=== PATIENT | female | born 1935 | race Caucasian/White ===

== ENCOUNTER → 2023-07-12 | Outpatient (CLI) | payer MEDICARE ==
[~2023-07-12] MED LIST: AMLODIPINE BESYL5 MG PO; ATORVASTATIN CA20 MG PO; ESTMED1.5T PO; HYDCHL25 PO; ISOSORBIDE MONO30 MG PO; KLOR-CON M1010 MEQ PO; LATANOPROST2.5 M3 OP; LEVO.5OPSO OD; LOSA25 PO; OMEP20ER PO; ROSU5 PO; SULTRIDS PO; VALS80 PO
== END ==
LOC: LAB 10:15 → LAB SHORT 10:15
DX: N39.0 Urinary tract infection, site not specified (principal)
CPT/HCPCS: 87086

== ENCOUNTER → 2023-07-20 | Outpatient (CLI) | payer MEDICARE ==
[2023-07-20 16:07] LABS: Candida species (DNA Probe) Negative (NEGATIVE); G. vaginalis (DNA Probe) Negative (NEGATIVE); T. vaginalis (DNA Probe) Negative (NEGATIVE)
== END | disposition home or self-care (01) ==
LOC: LAB SHORT 12:40 → LAB 12:40
PROVIDERS: Nurse Practitioner Family
DX: N89.8 Other specified noninflammatory disorders of vagina (principal)
CPT/HCPCS: 87070; 87205; 87480; 87510; 87660

== ENCOUNTER 2023-08-20 21:34 | Observation (INO) | payer MEDICARE ==
[~2023-08-20] VITALS: Ht 160 cm; Wt 62.6 kg
[~2023-08-20 21:34] MED LIST changes: +LATANOPROST2.5 M3 BOTHEYES; -LATANOPROST2.5 M3 OP
[2023-08-20 22:33] LABS: BASOPHILS ABSOLUTE AUTO 0.08 K/mm3 (0.00-0.23); BASOPHILS PERCENT AUTO 1 % (0-2); EOSINOPHILS ABSOLUTE AUTO 0.27 K/mm3 (0.00-0.68); EOSINOPHILS PERCENT AUTO 3 % (0-6); Hematocrit 37.1 % (33.0-51.0); Hemoglobin 12.8 g/dL (11.5-16.0); IMMATURE GRAN ABSOLUTE AUTO 0.04 K/mm3 (0.00-0.10); IMMATURE GRAN PERCENT AUTO 0 % (0-1); LYMPHOCYTES ABSOLUTE AUTO 2.97 K/mm3 (0.84-5.20); LYMPHOCYTES PERCENT AUTO 33 % (21-46); MONOCYTES ABSOLUTE AUTO 0.89 K/mm3 (0.16-1.47); MONOCYTES PERCENT AUTO 10 % (4-13); Mean Corpuscular HGB 32.7 pg (26.0-34.0); Mean Corpuscular HGB Conc 34.5 g/dL (31.5-36.5); Mean Corpuscular Volume 95 fL (80-100); NEUTROPHILS PERCENT AUTO 54 % (41-73); Platelet Count 261 K/mm3 (150-400); RDW Coefficient Variation 13.5 % (11.7-14.2); RDW Standard Deviation 46.7 fL (35.1-46.3); Red Blood Cell Count 3.92 M/mm3 (3.80-5.20); White Blood Cell Count 9.15 K/mm3 (4.00-11.30)
[2023-08-20 22:52] LABS: Albumin, Blood 3.7 g/dL (3.4-5.0); Albumin/Globulin Ratio 1.2 (0.8-1.8); Bilirubin, Total 0.4 mg/dL (0.1-1.0); Bun/Creatinine Ratio 23.8 (12.0-20.0); Calcium, Blood 9.1 mg/dL (8.5-10.1); Creatinine, Blood 0.71 mg/dL (0.40-1.00); Globulin, Blood 3.2 g/dL (2.2-4.0); Potassium, Blood 3.5 mmol/L (3.5-5.5); Total Protein, Blood 6.9 g/dL (6.4-8.2)
[2023-08-21 04:13] VITALS: BP 140/69
[2023-08-21 05:27] LABS: BASOPHILS ABSOLUTE AUTO 0.07 K/mm3 (0.00-0.23); BASOPHILS PERCENT AUTO 1 % (0-2); EOSINOPHILS PERCENT AUTO 3 % (0-6); Hematocrit 37.1 % (33.0-51.0); Hemoglobin 12.5 g/dL (11.5-16.0); IMMATURE GRAN ABSOLUTE AUTO 0.06 K/mm3 (0.00-0.10); IMMATURE GRAN PERCENT AUTO 1 % (0-1); LYMPHOCYTES ABSOLUTE AUTO 3.05 K/mm3 (0.84-5.20); LYMPHOCYTES PERCENT AUTO 33 % (21-46); MONOCYTES ABSOLUTE AUTO 0.77 K/mm3 (0.16-1.47); MONOCYTES PERCENT AUTO 8 % (4-13); Mean Corpuscular HGB 32.1 pg (26.0-34.0); Mean Corpuscular HGB Conc 33.7 g/dL (31.5-36.5); Mean Corpuscular Volume 95 fL (80-100); Mean Platelet Volume 9.4 fL (9.1-12.4); NEUTROPHILS ABSOLUTE AUTO 5.06 K/mm3 (1.96-9.15); NEUTROPHILS PERCENT AUTO 54 % (41-73); Platelet Count 240 K/mm3 (150-400); RDW Coefficient Variation 13.3 % (11.7-14.2); Red Blood Cell Count 3.89 M/mm3 (3.80-5.20); White Blood Cell Count 9.31 K/mm3 (4.00-11.30)
[2023-08-21 06:01] LABS: Albumin, Blood 3.4 g/dL (3.4-5.0); Albumin/Globulin Ratio 1.1 (0.8-1.8); Bilirubin, Total 0.5 mg/dL (0.1-1.0); Bun/Creatinine Ratio 21.4 (12.0-20.0); Calcium, Blood 8.9 mg/dL (8.5-10.1); Creatinine, Blood 0.66 mg/dL (0.40-1.00); Globulin, Blood 3.1 g/dL (2.2-4.0); Potassium, Blood 3.3 mmol/L (3.5-5.5); Total Protein, Blood 6.5 g/dL (6.4-8.2)
[2023-08-21 07:24] VITALS: BP 132/64
[2023-08-21] MEDS ORDERED: CLOP75 PO (13:38)
[2023-08-21] MEDS ORDERED: ASPI81CH PO (13:38)
--- NOTE | 2023-08-21 14:50 | NUR ---
DISCHARGE PT DISCHARGED TODAY AFTER BEING EDUCATED ON NEW MEDICATIONS, MEDICATION CHANGES, AND FOLLOW UP INSTRUCTIONS. PT ENCOURAGED TO STAY ANOTHER NIGHT FOR FURTHER CARDIAC , BUT STATED SHE WOULD PREFER TO LEAVE AND HAVE A ZIO PATCH PLACED WEDNESDAY. PT EDUCATED ON THE IMPORTANCE OF GETTING THIS PATCH PLACED AND TO CALL HER [employer] OFFICE IN ORDER TO DO THIS. PT STATES SHE UNDERSTANDS. PTS GRANDDAUGHTER, LEXII, ALSO EDUCATED ON THIS. PT EDUCATED ON THE NEED TO USE HER WALKER AT HOME TO PREVENT A FALL. PT AND GRANDDAUGHER STATE THEY UNDERSTAND. PT WHEELED OUT BY AIDE & DRIVE HOME BY GRANDDAUGHTER.
[2023-08-25 07:09] LABS: HEMOGLOBIN A1C 5.9 % (4.8-5.6)
== END 2023-08-21 14:48 | disposition home or self-care (01) ==
LOC: ER 21:34 → ERHOLD 21:35 → MEDS 21:35 → ENPENDDIS 08-21 13:36 → MEDS 08-21 14:48
PROVIDERS: Emergency Medicine; Internal Medicine; ADMIT Student in an Organized Health Care Education/Training Program
DX: I63.9 Cerebral infarction, unspecified (principal); I10 Essential (primary) hypertension; I35.0 Nonrheumatic aortic (valve) stenosis; Z88.5 Allergy status to narcotic agent; Z23 Encounter for immunization
CPT/HCPCS: 36415; 70450; 70496; 70498; 70551; 80053; 83036; 83735; 85025; 93005; 93010; 93306; 96372; 97110; 97116; 97162; 99285-25; A9270; G0008; G0378; J1650; Q2036; Q9967

== ENCOUNTER 2023-11-09 10:53 | Emergency (ER) | payer MEDICARE ==
[~2023-11-09] VITALS: Ht 160 cm; Wt 61.2 kg
[~2023-11-09 10:53] MED LIST changes: +ASPI81CH PO; +CLOP75 PO
[2023-11-09] MEDS ORDERED: ATOR40TA PO (11:10)
[2023-11-09] MEDS ORDERED: LOSA50 PO (11:11)
[2023-11-09 12:50] LABS: BASOPHILS ABSOLUTE AUTO 0.06 K/mm3 (0.00-0.23); BASOPHILS PERCENT AUTO 1 % (0-2); EOSINOPHILS ABSOLUTE AUTO 0.23 K/mm3 (0.00-0.68); EOSINOPHILS PERCENT AUTO 3 % (0-6); Hemoglobin 13.6 g/dL (11.5-16.0); IMMATURE GRAN ABSOLUTE AUTO 0.03 K/mm3 (0.00-0.10); IMMATURE GRAN PERCENT AUTO 0 % (0-1); LYMPHOCYTES ABSOLUTE AUTO 2.67 K/mm3 (0.84-5.20); LYMPHOCYTES PERCENT AUTO 30 % (21-46); MONOCYTES PERCENT AUTO 7 % (4-13); Mean Corpuscular HGB 32.3 pg (26.0-34.0); Mean Corpuscular Volume 95 fL (80-100); Mean Platelet Volume 9.1 fL (9.1-12.4); NEUTROPHILS ABSOLUTE AUTO 5.38 K/mm3 (1.96-9.15); NEUTROPHILS PERCENT AUTO 60 % (41-73); Platelet Count 234 K/mm3 (150-400); RDW Coefficient Variation 12.8 % (11.7-14.2); RDW Standard Deviation 43.9 fL (35.1-46.3); Red Blood Cell Count 4.21 M/mm3 (3.80-5.20); White Blood Cell Count 8.97 K/mm3 (4.00-11.30)
[2023-11-09 13:18] LABS: Albumin, Blood 3.5 g/dL (3.4-5.0); Albumin/Globulin Ratio 1.1 (0.8-1.8); Bilirubin, Total 0.3 mg/dL (0.1-1.0); Bun/Creatinine Ratio 22.3 (12.0-20.0); Calcium, Blood 9.3 mg/dL (8.5-10.1); Creatinine, Blood 0.63 mg/dL (0.40-1.00); Globulin, Blood 3.3 g/dL (2.2-4.0); Magnesium, Blood 2.3 mg/dL (1.6-2.4); Potassium, Blood 3.4 mmol/L (3.5-5.5); Total Protein, Blood 6.8 g/dL (6.4-8.2)
[2023-11-09 13:54] LABS: Source, Urine Straight Cath
[2023-11-09 14:00] LABS: Appearance, Urine Hazy (Clear); Bilirubin, Urine Neg (Neg); Blood, Urine Neg (Neg); Color, Urine Yellow (P-Yellow); Glucose Qualitative, Urine Neg (Neg); Ketones, Urine Neg (Neg); Leukocyte Esterase, Urine Neg (Neg); Nitrite, Urine Neg (Neg); Protein, Urine Neg (Neg); Specific Gravity, Urine 1.015 (1.003-1.022); Urobilinogen, Urine NORM (Normal)
[2023-11-09 14:06] LABS: Bacteria Not Seen /hpf; Red Blood Cells, Urine Not Seen /hpf (0-2); Squamous Epithelial Cells Rare /hpf (Few); White Blood Cells, Urine 0-2 /hpf (0-5)
[2023-11-09 15:15] VITALS: BP 102/52
== END 2023-11-09 15:42 | disposition home or self-care (01) ==
LOC: ER 10:53
PROVIDERS: Student in an Organized Health Care Education/Training Program
DX: R53.1 Weakness (principal); E87.6 Hypokalemia; I10 Essential (primary) hypertension; Z79.02 Long term (current) use of antithrombotics/antiplatelets; Z79.82 Long term (current) use of aspirin; Z79.899 Other long term (current) drug therapy
CPT/HCPCS: 70450; 71045; 80053; 81001; 83735; 85025; 93005; 93010; 96361; 96374; 99285-25; A9270; J2765; J7030

== ENCOUNTER → 2025-10-11 | Outpatient (CLI) | payer OTHER ==
[~2025-10-11] MED LIST changes: +ATOR40TA PO; +LOSA50 PO; +ZEBUTAL 50-3251 EAC1 PO
== END ==
LOC: LAB SHORT 17:38 → LAB 17:38
DX: R10.A1 Flank pain, right side (principal); N39.0 Urinary tract infection, site not specified
CPT/HCPCS: 87086